=== PATIENT | male | born 1980 | race Two or more races ===

== ENCOUNTER 2020-12-20 10:24 | Emergency (ER) | payer OTHER ==
[~2020-12-20] VITALS: Ht 177.8 cm; Wt 88.5 kg
[2020-12-20 10:40] VITALS: BP 144/81
[2020-12-20] MEDS: SILVER SULFADIAZINE 1 % TOPICAL CREAM 50GM TOP ONE ×2 (11:09→12:36)
== END 2020-12-20 12:44 | disposition home or self-care (01) ==
LOC: EEVIPCON 10:24 → ER 10:24
DX: T23.231A Burn of second degree of multiple right fingers (nail), not including thumb, initial encounter (principal); T15.92XA Foreign body on external eye, part unspecified, left eye, initial encounter; T15.91XA Foreign body on external eye, part unspecified, right eye, initial encounter; X17.XXXA Contact with hot engines, machinery and tools, initial encounter; Y93.89 Activity, other specified; Y92.89 Other specified places as the place of occurrence of the external cause; Y99.8 Other external cause status
CPT/HCPCS: 70480